=== PATIENT | female | born 1990 ===

== ENCOUNTER 2018-10-13 13:54 | Emergency (ER) | payer SELFPAY ==
--- NOTE | 2018-10-13 16:00 | ED ---
Adult Trauma - HPI Summary HPI Summary: 27-year-old female presents with left shoulder knee pain today. She states she and landing on her left side. She states that she lost her balance on uneven sidewalk. She denies any head injury. She did strike the left side of her jaw. No loss consciousness. No nausea vomiting. She states she felt very tingly but it was likely due to anxiety. she denies any headache. She denies any neck pain. No back pain. Denies any ankle or hip pain. Denies any other injury. Has history of chronic shoulder issues on left side. Is left-handed. she is a student. - History of Current Complaint Chief Complaint: EDExtremityLower Stated Complaint: FELL PER EMS Time Seen by Provider: 10/13/18 15:46 Pain Intensity: 6 - Allergy/Home Medications Allergies/Adverse Reactions: Allergies Allergy/AdvReac Type Severity Reaction Status Date / Time No Known Allergies Allergy Verified 10/13/18 17:27 PMH/Surg Hx/FS Hx/Imm Hx Endocrine/Hematology History: Denies: Hx Anticoagulant Therapy Cardiovascular History: Denies: Hx Myocardial Infarction Psychiatric History: Reports: Hx Anxiety Infectious Disease History: No Infectious Disease History: Denies: Traveled Outside the [place] in Last 30 Days - Family History Known Family History: Positive: Non-Contributory - Social History Occupation: Student Substance Use Type: Reports: None Review of Systems Negative: Fever Negative: Chest Pain Negative: Shortness Of Breath Positive: Myalgia - left shoulder and knee pain All Other Systems Reviewed And Are Negative: Yes Physical Exam Triage Information Reviewed: Yes Vital Signs On Initial Exam: Initial Vitals Temp Pulse Resp BP Pulse Ox 98.1 F 106 16 121/97 100 10/13/18 14:01 10/13/18 14:01 10/13/18 14:01 10/13/18 14:01 10/13/18 14:01 Vital Signs Reviewed: Yes Appearance: Positive: Well-Appearing Skin: Positive: Warm, Dry Head/Face: Positive: Normal Head/Face Inspection Eyes: Positive: Normal, EOMI, MARIJA, Conjunctiva Clear ENT: Positive: Normal ENT inspection, Pharynx normal, TMs normal Neck: Positive: Other: - nontender neck Respiratory/Lung Sounds: Positive: Clear to Auscultation, Breath Sounds Present Cardiovascular: Positive: Normal, RRR Musculoskeletal: Positive: Limited @ - left shoulder and knee, Other - tenderness over left shoulder, tenderness over patella left, good pulses, sensation grossly intact. good flat spring assembler strength Neurological: Positive: Normal Psychiatric: Positive: Normal Diagnostics - Vital Signs Vital Signs Temp Pulse Resp BP Pulse Ox 10/13/18 14:01 98.1 F 106 16 121/97 100 - Laboratory Lab Statement: Any lab studies that have been ordered have been reviewed, and results considered in the medical decision making process. - Radiology knee Radiology Interpretation Completed By: Radiologist Summary of Radiographic Findings: no fracture shoulder Radiology Interpretation Completed By: Radiologist Summary of Radiographic Findings: REPORT AND IMPRESSION: #. Suggestion of a tiny osseous avulsion at the greater tuberosity of the humerus. corresponding with the supraspinatus tendon insertion reference the external rotation. view. The differential would include a small focus of calcific tendinopathy. #. Normal acromioclavicular and glenohumeral joint alignment. #. Unremarkable soft tissue contours. - CT maxillary CT Interpretation Completed By: Radiologist Summary of CT Findings: IMPRESSION: #. Negative for maxillofacial fracture. Re-Evaluation - Re-Evaluation First Eval Re-Evaluation Time: 17:01 Comment: discussed results, and patient is upset that can not get an MRI from the ER, explained this is an outpatient test and can be ordered by [facility] or [facility] Adult Trauma Course/Dx - Course Course Of Treatment: 27-year-old female presents with left shoulder knee pain today. She states she and landing on her left side. She states that she lost her balance on uneven sidewalk. She denies any head injury. She did strike the left side of her jaw. No loss consciousness. No nausea vomiting. She states she felt very tingly but it was likely due to anxiety. she denies any headache. She denies any neck pain. No back pain. Denies any ankle or hip pain. Denies any other injury. Has history of chronic shoulder issues on left side. Is left-handed. she is a student. On exam tenderness over left shoulder. Neurovascularly intact. Tenderness over left patella. Tenderness of her lower jaw. States no loose teeth and denies any change in bite but is concerned that the hairline fractures so we'll have to get a CT. CT is normal. xray knee normal. xray knee normal. xray shoulder shows avulsion on the tendon possible. gave sling. discussed mri will have to be an outpatient test and should follow up with ortho, gave flexeril for pain. patient understand and agrees with plan. - Diagnoses Differential Diagnosis/HQI/PQRI: Positive: Contusion(s), Fracture, Strain Provider Diagnoses: Left shoulder pain, Fall, Left knee pain, Jaw pain Discharge - Sign-Out/Discharge Documenting (check all that apply): Patient Departure Patient Received Moderate/Deep Sedation with Procedure: No - Discharge Plan Condition: Good Disposition: HOME Prescriptions: Cyclobenzaprine TAB* [Flexeril 10 MG TAB*] 10 mg PO TID PRN #15 tab PRN Reason: Pain Patient Education Materials: Shoulder Pain (ED) Forms: *School Release [place] [facility] [place] [Medical Doctor] - Martín Rivero MD [Medical Doctor] - Additional Instructions: Take Tylenol and ibuprofen every 6 hours as needed for pain can use flexeril up to three times a day, start with medication at night as can make drowsy Ice/heat use sling for comfort Can rest for one day and then need to do range of motion activities for shoulder Follow up with ortho Return to ED if develop any new or worsening symptoms - Billing Disposition and Condition Condition: GOOD Disposition: Home
[2018-10-13] MEDS ORDERED: Ketorolac INJ* 30 MG/ML 1 ML VIAL IM ONE (17:22)
[2018-10-13] MEDS ORDERED: Cyclobenzaprine TAB* 10 MG PO ONE (17:22)
[2018-10-13 17:46] VITALS: BP 121/87
== END 2018-10-13 17:33 | disposition home or self-care (01) ==
LOC: ED 13:54
DX: M25.512 Pain in left shoulder (principal); M25.562 Pain in left knee; R68.84 Jaw pain; W18.30XA Fall on same level, unspecified, initial encounter; Y93.01 Activity, walking, marching and hiking; Y92.480 Sidewalk as the place of occurrence of the external cause
CPT/HCPCS: 70486; 96372; 99282; A9270-GY; J1885